=== PATIENT | female | born 1940 | race Caucasian/White ===

== ENCOUNTER 2019-10-02 13:21 | Emergency (ER) | payer OTHER ==
[~2019-10-02] VITALS: Ht 157.5 cm; Wt 65.8 kg
[2019-10-02] MEDS ORDERED: VISTARIL25 MG PO (17:22)
== END 2019-10-02 17:54 | disposition home or self-care (01) ==
LOC: ER 13:21 → CPU-OBS 13:35 → ER 17:54
DX: R07.89 Other chest pain (principal)

== ENCOUNTER 2020-09-13 06:03 | Day surgery (SDC) | payer OTHER ==
[~2020-09-13 06:03] MED LIST: COZAAR25 MG PO; GLIMEPIRIDE2 MG; LEVOTHYROXINE25 MCG PO; PLAVIX75 MG PO; VISTARIL25 MG PO
[2020-09-13] MEDS ORDERED: ULTRACET PO (09:01)
== END 2020-09-13 13:40 | disposition home or self-care (01) ==
LOC: CIR.AMB 06:03 → AMB-ENDOS 12:30 → CIR.AMB 12:30
PROVIDERS: ATTEND Surgery
DX: K62.0 Anal polyp (principal); Z20.822 Contact with and (suspected) exposure to COVID-19